=== PATIENT | male | born 1985 | race Caucasian/White ===

== ENCOUNTER 2020-02-20 12:19 | Emergency (ER) | payer BC, OTHER ==
--- NOTE | 2020-02-20 13:01 | EDM.PDOC ---
ED HPI GENERAL MEDICAL PROBLEM - General Chief Complaint: Headache Stated Complaint: HEADACHE Time Seen by Provider: 02/20/20 12:27 Source of Information: Reports: Patient, RN Notes Reviewed History Limitations: Reports: No Limitations - History of Present Illness INITIAL COMMENTS - FREE TEXT/NARRATIVE: Patient is a 34-year-old male presenting to the emergency department with c omplaints of left-sided headache since last evening. He states that he was helping someone load a car on the side of the road. After he got back to his vehicle, he coughed quite hard and felt like something popped in his head. Since that time he has had throbbing pain in his head which waxes and wanes. Denies that it ever goes away completely, however does occasionally improve and then get worse. He denies any vision changes. States when it initially happened he felt dizzy and has had a couple very brief episodes of dizziness since that time, however states he "has no major dizziness ". He took 1 Excedrin Migraine this morning with little relief. Denies any history of migraines. Left Head Pain Score (Numeric/FACES): 6 - Related Data Allergies Allergy/AdvReac Type Severity Reaction Status Date / Time Sulfa (Sulfonamide Allergy Airway Verified 02/20/20 12:35 Antibiotics) Tightness Home Meds: Home Meds Omeprazole 20 mg PO DAILY 02/20/20 [History] Past Medical History - Infectious Disease History Infectious Disease History: Reports: Chicken Pox - Past Surgical History HEENT Surgical History: Reports: LASIK Male Surgical History: Reports: Other (See Below) Other Male Surgeries/Procedures: testicular toersion, - testicle removed Social & Family History - Caffeine Use Caffeine Use: Reports: Coffee, Soda, Tea - Recreational Drug Use Recreational Drug Use: No ED ROS GENERAL - Review of Systems Review Of Systems: See Below Constitutional: Reports: No Symptoms HEENT: Reports: No Symptoms. Denies: Vertigo, Vision Change Respiratory: Reports: No Symptoms Cardiovascular: Reports: No Symptoms Endocrine: Reports: No Symptoms GI/Abdominal: Reports: Nausea. Denies: Abdominal Pain, Vomiting : Reports: No Symptoms Musculoskeletal: Reports: No Symptoms Skin: Reports: No Symptoms Neurological: Reports: Dizziness, Headache. Denies: Confusion, Paresthesia, Syncope, Trouble Speaking, Difficulty Walking, Weakness, Change in Speech Psychiatric: Reports: No Symptoms Hematologic/Lymphatic: Reports: No Symptoms Immunologic: Reports: No Symptoms - Physical Exam Exam: See Below General Appearance: Alert, WD/WN, No Apparent Distress Eye Exam: Bilateral Eye: PERRL Head Exam: Atraumatic, Normocephalic Respiratory/Chest: No Respiratory Distress, Lungs Clear, Normal Breath Sounds, No Accessory Muscle Use, Chest Non-Tender Cardiovascular: Normal Peripheral Pulses, Regular Rate, Rhythm, No Edema, No Gallop, No JVD, No Murmur, No Rub GI/Abdominal: Normal Bowel Sounds, Soft, Non-Tender, No Organomegaly, No Distention, No Abnormal Bruit, No Mass Neuro Exam (Abbreviated): Alert, Oriented, CN II-XII Intact, Normal Cognition, Normal Gait, Normal Reflexes, No Motor/Sensory Deficits Psychiatric: Normal Affect, Normal Mood Skin Exam: Warm, Dry, Intact, Normal Color, No Rash Course - Vital Signs Last Recorded V/S: Last Vital Signs Temp 97.1 F 02/20/20 12:31 Pulse 70 02/20/20 14:59 Resp 18 02/20/20 12:31 BP 130/72 02/20/20 14:59 Pulse Ox 100 02/20/20 14:59 - Orders/Labs/Meds Meds: Medications Discontinued Medications Generic Name Dose Route Start Last Admin Trade Name Vianey PRN Reason Stop Dose Admin Ketorolac Tromethamine 60 mg 02/20/20 13:52 02/20/20 14:02 Toradol IM 02/20/20 13:53 60 mg ONETIME ONE Administration - Re-Assessments/Exams Free Text/Narrative Re-Assessment/Exam: Patient is a 34-year-old male presenting to the emergency department with complaints of a left-sided headache since yesterday. States that he coughed hard and felt a pop in his head and has had pain since that time. I ordered a CT scan to rule out intracranial hemorrhage. If this is found to be normal, will give him Toradol 60 mg IM. 02/20/20 14:38 CT scan of the head showed no acute intracranial abnormalities. There is some abnormality within his right frontal sinus which is likely an incidental finding unrelated to his left-sided headache today. Patient did receive the Toradol 60 mg IM and states his headache has improved. Discussed use of Tylenol and ibuprofen as needed for headache. Return to ER for worsening symptoms. Discharge instructions as documented. Departure - Departure Time of Disposition: 14:39 Disposition: Home, Self-Care 01 Condition: Good Clinical Impression: Headache Qualifiers: Headache type: unspecified Headache chronicity pattern: acute headache Intractability: not intractable Qualified Code(s): R51.9 - Headache, unspecified - Discharge Information *PRESCRIPTION DRUG MONITORING PROGRAM REVIEWED*: No *COPY OF PRESCRIPTION DRUG MONITORING REPORT IN PATIENT SANJUANITA: No Instructions: General Headache Without Cause, [id number] Referrals: PCP,None [Primary Care Provider] - Forms: ED Department Discharge Additional Instructions: You were seen in the emergency department today for headache since yesterday which occurred after an intense coughing episode. A CT scan of your head was done in the emergency department and showed no acute intracranial abnormalities. There is no bleeding within your brain. 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 While in the ER, you received an injection of Toradol which did help your headache. Recommend that you use Tylenol and ibuprofen as needed for discomfort. If you experience any new or worsening symptoms of concern, please not hesitate to return to the emergency department. Sepsis Event Note (ED) - Evaluation Sepsis Screening Result: No Definite Risk - Focused Exam Vital Signs: Vital Signs Temp Pulse Resp BP Pulse Ox 02/20/20 14:59 70 130/72 100 02/20/20 12:31 97.1 F 90 18 155/95 H 97
[2020-02-20] MEDS ORDERED: Ketorolac 60 MG/2 ML SDV IM ONE (13:52)
--- NOTE | 2020-02-20 14:21 | CT ---
PROCEDURE INFORMATION: Exam: CT Head Without Contrast Exam date and time: 02/20/2020 1:47 PM Age: 34 years old Clinical indication: Pain; Headache not specified; Patient HX: Left side headache TECHNIQUE: Imaging protocol: Computed tomography of the head without contrast. COMPARISON: No relevant prior studies available. FINDINGS: Brain: Normal. No hemorrhage. Unremarkable white matter. No mass effect. 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 No specific followup required/recommended. Cerebral ventricles: No hydrocephalus or evidence of increased intracranial pressure. Bones/joints: Unremarkable. No acute fracture. 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 No fluid levels. Mastoid air cells: Visualized mastoid air cells are well aerated. Soft tissues: Unremarkable. IMPRESSION: 1. No acute intracranial abnormality identified. 2. Abnormal right frontal sinus. Comparison with prior studies recommended, if available. Otherwise followup may be helpful. Thank you for allowing us to participate in the care of your patient. Dictated and Authenticated by: Laron Crowley MD 02/20/2020 2:34 PM Central Time ([place] & [place]) JADEN
== END 2020-02-20 15:00 | disposition home or self-care (01) ==
LOC: JD.ED 12:19
DX: R51.9 Headache, unspecified (principal); Z88.2 Allergy status to sulfonamides; Z79.899 Other long term (current) drug therapy
CPT/HCPCS: 70450; 96372; 99284; J1885